=== PATIENT | female | born 1970 | race Caucasian/White ===

== ENCOUNTER 2018-04-26 08:32 | Observation (INO) ==
--- NOTE | 2018-04-26 08:44 | ED ---
HPI General Chief Complaint: Chest Pain Stated Complaint: Chest pain Time Seen by Provider: 04/26/18 08:42 Source: patient Mode of arrival: ambulatory Limitations: no limitations History of Present Illness HPI narrative: 48-year-old female patient presents to the ER today with intermittent chest discomfort lasting about 5 minutes at a time starting while she was at work. She states that the pain was a 8 out of 10 but is now a 2 out of 10. She denies any trouble breathing, vomiting, but did state that she has some nausea today. She states that her left arm feels tingly. She states that she had loss of both of her parents recently. However, denies other issues. Complete Quality Measures for STEMI Alert Patients Related Data Home Medications Medication Instructions Recorded Confirmed No Known Home Medications 04/26/18 04/26/18 Allergies Allergy/AdvReac Type Severity Reaction Status Date / Time No Known Allergies Allergy Unverified 04/26/18 08:44 Review of Systems Except as stated in HPI: all other systems reviewed are negative PMFSH History History Provided By: Patient Social History Social History Substance History: Past History Smoking Status: Former smoker How Often Do You Have a Drink Containing Alcohol: Never Recent Travel in [place] within the Last 8 Weeks: No Recent Out of Country Travel within the Last 8 Weeks: No Exam Narrative Exam Narrative: GENERAL: Well-developed middle-age female patient currently in mild distress. Awake and oriented 3. SKIN: Focused skin assessment warm/dry. HEAD: Atraumatic. Normocephalic. EYES: Pupils equal and round. No scleral icterus. No injection or drainage. ENT: No nasal bleeding or discharge. Mucous membranes pink and moist. NECK: Trachea midline. No JVD. CARDIOVASCULAR: Regular rate and rhythm. No murmur appreciated. RESPIRATORY: No accessory muscle use. Clear to auscultation. Breath sounds equal bilaterally. GASTROINTESTINAL: Abdomen soft, non-tender, nondistended. Hepatic and splenic margins not palpable. MUSCULOSKELETAL: No obvious deformities. No clubbing. No cyanosis. No edema. NEUROLOGICAL: Awake and alert. No obvious cranial nerve deficits. Motor grossly within normal limits. Normal speech. PSYCHIATRIC: Appropriate mood and affect; insight and judgment normal. Course Initial Documented Vital Signs Temperature 98.2 F 04/26/18 08:44 Pulse Rate 109 H 04/26/18 08:44 Respiratory Rate 20 04/26/18 08:44 Blood Pressure 147/70 H 04/26/18 08:44 Pulse Oximetry 97 04/26/18 08:44 Last Documented Vital Signs Temperature 98.2 F 04/26/18 08:44 Pulse Rate 107 H 04/26/18 09:30 Respiratory Rate 17 04/26/18 09:30 Blood Pressure 133/73 04/26/18 09:30 Pulse Oximetry 94 L 04/26/18 09:30 Medical Decision Making MDM Narrative Medical decision making narrative: EKG did not show significant ST changes. Her lab work was fairly unremarkable with a negative troponin. Patient states that she has been smoking more since the of her parents, and she does admit that she has been coughing a bit. Chest x-ray did not show any signs of acute pneumonia. She was given a nebulizer in the ER considering her history. At this point, patient has been given aspirin by EMS and in the ER on reevaluation at 10 AM, she states that her chest pain is gone. My plan would be to admit her for further evaluation of this atypical chest pain. She apparently has family history of heart disease as well. Differential Diagnosis Differential Diagnosis: Anxiety attack versus dysrhythmias versus ACS Lab Data Lab results reviewed: Yes I reviewed the patient's lab results. Result diagrams: 04/26/18 08:53 04/26/18 08:53 Lab Results 04/26/18 04/26/18 04/26/18 Range/Units 08:53 08:53 08:53 WBC 8.3 (4.0-11.0) th/mm3 RBC 5.32 H (4.00-5.30) mil/mm3 Hgb 15.6 H (11.6-15.3) gm/dL Hct 46.3 H (35.0-46.0) % MCV 87.0 (80.0-100.0) fL MCH 29.4 (27.0-34.0) pg MCHC 33.8 (32.0-36.0) % RDW 14.0 (11.6-17.2) % Plt Count 304 (150-450) th/mm3 MPV 9.3 (7.0-11.0) fL Neut % (Auto) 67.0 (16.0-70.0) % Lymph % (Auto) 22.7 (9.0-44.0) % [place] % (Auto) 8.6 H (0.0-8.0) % Eos % (Auto) 1.4 (0.0-4.0) % Baso % (Auto) 0.3 (0.0-2.0) % Neut # (Auto) 5.6 (1.8-7.7) th/mm3 Lymph # (Auto) 1.9 (1.0-4.8) th/mm3 [place] # (Auto) 0.7 (0.0-0.9) th/mm3 Eos # (Auto) 0.1 (0.0-0.4) th/mm3 Baso # (Auto) 0.0 (0.0-0.2) th/mm3 WBC Differential . Differential Comment Auto diff final PT 10.7 (9.8-11.6) sec INR 1.1 Ratio APTT 30.9 H (24.3-30.1) sec Sodium 139 (136-145) meq/L Potassium 3.8 (3.5-5.1) meq/L Chloride 105 (98-107) meq/L Carbon Dioxide 24.8 (21.0-32.0) meq/L Anion Gap 9 (5-15) meq/L BUN 12 (7-18) mg/dL Creatinine 0.51 (0.50-1.00) mg/dL Estimated GFR Greater than 89 (>89) mL/min Random Glucose 111 H (74-106) mg/dL Calcium 8.9 (8.5-10.1) mg/dL Troponin I 0.04 (0.02-0.05) ng/mL Imaging Data Attestation: I personally reviewed and interpreted this imaging study as follows : Radiologist's impression: Chest X-Ray 04/26/18 08:45 CONCLUSION: No acute findings. ECG Data Attestation: I personally reviewed and interpreted this ECG as follows: Interpretation: EKG shows sinus tachycardia at a rate of 104 bpm. No signs of acute ST elevations or depressions. Discharge Plan Discharge Details Anticipated Discharge Date: 04/26/18 Physicians Team ED Provider: Jovan Zazueta Rxs /Orders / Referrals /Forms Prescriptions: No Action No Known Home Medications RF: 0 Discharge Interventions Interventions: Vital Signs Last Done: 04/26/18 09:30 Status ED Status: With Doctor
[2018-04-26 09:27] LABS: Baso % (Auto) 0.3 % (0.0-2.0); Eos # (Auto) 0.1 th/mm3 (0.0-0.4); Eos % (Auto) 1.4 % (0.0-4.0); Hematocrit 46.3 % (35.0-46.0); Hemoglobin 15.6 gm/dL (11.6-15.3); Lymph # (Auto) 1.9 th/mm3 (1.0-4.8); Lymph % (Auto) 22.7 % (9.0-44.0); Mean Corpuscular HGB Conc 33.8 % (32.0-36.0); Mean Corpuscular Hemoglobin 29.4 pg (27.0-34.0); Mean Platelet Volume 9.3 fL (7.0-11.0); Mono # (Auto) 0.7 th/mm3 (0.0-0.9); Mono % (Auto) 8.6 % (0.0-8.0); Neut # (Auto) 5.6 th/mm3 (1.8-7.7); Platelet Count 304 th/mm3 (150-450); Red Blood Count 5.32 mil/mm3 (4.00-5.30); White Blood Count 8.3 th/mm3 (4.0-11.0)
--- NOTE | 2018-04-26 09:33 | XR ---
EXAM DATE: 04/26/2018 9:19 AM EDT AGE/SEX: 48 years / Female INDICATIONS: Chest pain, vertigo and diaphoretic this morning CLINICAL DATA: This is the patient's initial encounter. Patient reports that signs and symptoms have been present for 1 day and indicates a pain score of 7/10. MEDICAL/SURGICAL HISTORY: . smoker None. COMPARISON: No prior exams available for comparison. FINDINGS: A single AP view of the chest demonstrates the lungs to be symmetrically aerated without evidence of mass, infiltrate or effusion. The cardiomediastinal contours are unremarkable. Osseous structures a re intact. CONCLUSION: No acute findings. Electronically signed by: Dylan Beck MD 04/26/2018 9:32 AM EDT
[2018-04-26 09:36] LABS: Activated Partial Thrombo Time 30.9 sec (24.3-30.1); INR 1.1 Ratio; Prothrombin Time 10.7 sec (9.8-11.6)
[2018-04-26 09:54] LABS: Anion Gap 9 meq/L (5-15); Blood Urea Nitrogen 12 mg/dL (7-18); Calcium 8.9 mg/dL (8.5-10.1); Carbon Dioxide 24.8 meq/L (21.0-32.0); Chloride 105 meq/L (98-107); Glomerular Filtration Rate Greater Than 89 mL/min (>89); Glucose,Random 111 mg/dL (74-106); Potassium 3.8 meq/L (3.5-5.1); Sodium 139 meq/L (136-145)
[2018-04-26 09:58] LABS: Troponin I 0.04 ng/mL (0.02-0.05)
--- NOTE | 2018-04-26 14:26 | P.HPCA ---
History of Present Illness Primary Care Physician: No Primary Care Physician Chief Complaint: Chest pain History of Present Illness: This is a 48-year-old female the presents to ED via private vehicle with complaint of having a few episodes of chest discomfort she describes a left upper chest discomfort that began first while she was sitting at her desk at work. Was a tightness the last 1 or 2 minutes but recurred 2 more times. States she broke out into a sweat and felt little nauseous but denied shortness of breath. Cannot really recall this happening before. Cannot recall ever having a stress test or heart catheterization. States that she did develop nonproductive cough for last couple days. Denies fevers or chills. Denies recent travel. - Diagnosis (1) Chest pain (2) Tobacco abuse Review of Systems General: Patient denies fevers, chills, and recent travel. HEENT: Patient denies headache, sore throat, difficulty swallowing. Cardiovascular: Has the chest discomfort as mentioned above. Denies sensation of heart beating rapidly or irregularly. No syncope. Was little diaphoretic. Respiratory: Patient has had a couple days of nonproductive coughing. Denies shortness of breath or inspirational chest discomfort. Denies wheezing or hemoptysis. GI: [place] nauseous. Patient denies vomiting, diarrhea, abdominal pain, bloody stools. Musculoskeletal: Patient denies joint pain or edema. Denies calf pain or edema. Neurovascular: Patient denies numbness, tingling, weakness in extremities. Denies headache. Endocrine: Denies polyuria and polydipsia. Hematologic: Denies easy bruising. Skin: Denies rash or itching. PMFSH - History History Provided By: Patient - Tobacco History Tobacco Use In Past 30 Days: Yes Smoking Status: Former smoker - Alcohol History How Often Do You Have a Drink Containing Alcohol: Never - Substance Use History Substance History: Past History - Substance Use Type Marijuana Status: Sustained Remission - Travel History Recent Travel in the [place] Within the Last 8 Weeks: No Recent Travel Out of the Country Within the Last 8 Weeks: No - Immunization History Tetanus Immunization: >5 Years Medications and Allergies Active Medications: Active Medications Albuterol (Duoneb Neb (Prn)) 1 ampul NEB Q4HR NEB PRN PRN Reason: SHORTNESS OF BREATH/WHEEZING Aspirin (Aspirin) 325 mg PO DAILY LANCE Clonidine HCl (Catapres) 0.1 mg PO Q6H PRN PRN Reason: SBP >165 OR DBP > 110 Sodium Chloride (Ns Flush) 2 ml IV.FLUSH UNSCH PRN PRN Reason: FLUSH AFTER USING IV ACCESS Sodium Chloride (Ns Flush) 2 ml IV.FLUSH BID LANCE Sodium Chloride (Ns Flush) 2 ml IV.FLUSH PRN PRN PRN Reason: FLUSH AFTER USING IV ACCESS Allergies Allergy/AdvReac Type Severity Reaction Status Date / Time No Known Allergies Allergy Unverified 04/26/18 08:44 Home Medications Medication Instructions Recorded Confirmed Type No Known Home Medications 04/26/18 04/26/18 History Exam Vital signs: Vital Signs 04/26/18 08:44 04/26/18 09:30 04/26/18 10:00 Temperature 98.2 F Pulse Rate 109 H 107 H 112 H Respiratory Rate 20 17 22 Blood Pressure 147/70 H 133/73 121/69 Pulse Oximetry 97 94 L 94 L 04/26/18 10:32 04/26/18 11:00 04/26/18 12:00 Temperature Pulse Rate 75 110 H 114 H Respiratory Rate 20 21 18 Blood Pressure 129/60 123/77 Pulse Oximetry 94 L 94 L 04/26/18 13:00 04/26/18 13:41 Temperature 98.6 F Pulse Rate 106 H 105 H Respiratory Rate 20 16 Blood Pressure 123/67 120/64 Pulse Oximetry 94 L 96 Intake & Output 04/25/18 04/26/18 04/26/18 18:59 06:59 18:59 Weight 113.398 kg Narrative: GENERAL: This is a well-nourished, well-developed patient, in no apparent distress. Patient speaks in clear complete sentences. Patient is pleasant. HEENT: Head is atraumatic and normocephalic. Neck is supple without lymphadenopathy and trachea is midline. No JVD or carotid bruits. CARDIOVASCULAR: Regular rate and rhythm without murmurs, gallops, or rubs. RESPIRATORY: Clear to auscultation. Breath sounds equal bilaterally. No wheezes , rales, or rhonchi. Chest wall is nontender. No use of accessory muscles. GASTROINTESTINAL: Abdomen is nontender, nondistended. Abdomen soft. No obvious pulsatile mass or bruit. No CVA tenderness. Strong femoral pulses bilaterally. Normal bowel sounds in all quadrants. MUSCULOSKELETAL: Patient is moving upper and lower extremities freely. No calf tenderness or edema, no Homans sign. Strong pulses in upper and lower extremities. NEUROLOGICAL: Patient is alert and oriented. Cranial nerves 2-12 are grossly intact. No focal deficits and speech is clear. SKIN: No rash and turgor is normal. Results 04/26/18 08:53 04/26/18 08:53 Cardiac Enzymes 04/26/18 Range/Units 08:53 Troponin I 0.04 (0.02-0.05) ng/mL Coagulation 04/26/18 Range/Units 08:53 PT 10.7 (9.8-11.6) sec APTT 30.9 H (24.3-30.1) sec CBC 04/26/18 Range/Units 08:53 WBC 8.3 (4.0-11.0) th/mm3 RBC 5.32 H (4.00-5.30) mil/mm3 Hgb 15.6 H (11.6-15.3) gm/dL Hct 46.3 H (35.0-46.0) % Plt Count 304 (150-450) th/mm3 Neut # (Auto) 5.6 (1.8-7.7) th/mm3 Lymph # (Auto) 1.9 (1.0-4.8) th/mm3 [place] # (Auto) 0.7 (0.0-0.9) th/mm3 Eos # (Auto) 0.1 (0.0-0.4) th/mm3 Baso # (Auto) 0.0 (0.0-0.2) th/mm3 Comprehensive Metabolic Panel 04/26/18 Range/Units 08:53 Sodium 139 (136-145) meq/L Potassium 3.8 (3.5-5.1) meq/L Chloride 105 (98-107) meq/L Carbon Dioxide 24.8 (21.0-32.0) meq/L BUN 12 (7-18) mg/dL Creatinine 0.51 (0.50-1.00) mg/dL Calcium 8.9 (8.5-10.1) mg/dL Intake and Output 04/25/18 04/26/18 04/26/18 22:59 06:59 14:59 Other: Weight 113.398 kg Patient Weight 04/27/18 06:59 Weight 113.398 kg EKG interpretations - EKG EKG shows: tachycardia (Initial EKG is sinus tachycardia rate [address] segment depressions or elevations.) Caprini VTE Risk Assessment Caprini VTE Risk Assessment: No/Low Risk (score <= 1) Caprini Risk Assessment Model: Point Value = 1 Point Value = 2 Point Value = 3 Point Value = 5 Age 41-60 Minor surgery BMI > 25 kg/m2 Swollen legs Varicose veins or History of unexplained or recurrent spontaneous Oral contraceptives or hormone replacement Sepsis (< 1 month) Serious lung disease, including pneumonia (< 1 month) Abnormal pulmonary function Acute myocardial infarction Congestive heart failure (< 1 month) History of inflammatory bowel disease Medical patient at bed rest Age 61-74 Arthroscopic surgery Major open surgery (> 45 min) Laparoscopic surgery (> 45 min) Malignancy Confined to bed (> 72 hours) Immobilizing plaster cast Central venous access Age >= 75 History of VTE Family history of VTE Factor V Leiden Prothrombin [id number] Lupus anticoagulant Anticardiolipin antibodies Elevated serum homocysteine Heparin-induced thrombocytopenia Other congenital or acquired thrombophilia Stroke (< 1 month) Elective arthroplasty Hip, pelvis, or leg fracture Acute spinal cord injury (< 1 month) Prophylaxis Regimen: Total Risk Factor Score Risk Level Prophylaxis Regimen 0-1 Low Early ambulation 2 Moderate Order ONE of the following: *Sequential Compression Device (SCD) *Heparin 5000 units SQ BID 3-4 Higher Order ONE of the following medications: *Heparin 5000 units SQ TID *Enoxaparin/Lovenox 40 mg SQ daily (WT < 150 kg, CrCl > 30 mL/min) *Enoxaparin/Lovenox 30 mg SQ daily (WT < 150 kg, CrCl > 10-29 mL/min) *Enoxaparin/Lovenox 30 mg SQ BID (WT < 150 kg, CrCl > 30 mL/min) AND/OR *Sequential Compression Device (SCD) 5 or more Highest Order ONE of the following medications: *Heparin 5000 units SQ TID (Preferred with Epidurals) *Enoxaparin/Lovenox 40 mg SQ daily (WT < 150 kg, CrCl > 30 mL/min) *Enoxaparin/Lovenox 30 mg SQ daily (WT < 150 kg, CrCl > 10-29 mL/min) *Enoxaparin/Lovenox 30 mg SQ BID (WT < 150 kg, CrCl > 30 mL/min) AND *Sequential Compression Device (SCD) Assessment and Plan - Assessment (1) Chest pain Code(s): R07.9 - Chest pain, unspecified Status: Acute (2) Tobacco abuse Code(s): Z72.0 - Tobacco use Status: Acute - Plan * Chest pain: Patient will have serial cardiac enzymes and EKGs for ruling out purposes. She will be seen by Dr. Downs of cardiology in the chest pain center. Patient likely have stress test if she rules out. Patient will be discharged home her stress test is nonischemic with instructions to follow-up with PCP, quit smoking, and return to ED for interval issues. * Tobacco abuse: Patient counseled on the importance of smoking cessation.
[2018-04-26 15:03] LABS: Troponin I 0.04 ng/mL (0.02-0.05)
[2018-04-26] MEDS ORDERED: Sod Chloride 0.9% Inj 1,000 ML IV.SIG ONE (16:15)
--- NOTE | 2018-04-26 16:51 | TR ---
Date Performed: 04/26/2018 Time Performed: 15:43:43 DOCTOR: Mimi Downs DRUG LIST: CLINICAL HISTORY: REASON FOR TEST: ATYPICAL CHEST PAIN REASON FOR ENDING: OBSERVATION: CONCLUSION: MAXIMUS PROTOCOL. NO CP. TEST STOPPED SECONDARY TO SOB AND LEG FATIGUE.Maximum NX=349 % Max HR Fbomdcjg=510.0% Maximum PS=102/74 Total Exercise Time=5:01 COMMENTS: NO ISCHEMIA
--- NOTE | 2018-04-26 23:04 | ECG ---
Date Performed: 04/26/2018 Time Performed: 08:44:40 PTAGE: 48 years EKG: SINUS TACHYCARDIA WITH OCCASIONAL SUPRAVENTRICULAR PREMATURE COMPLEXES POSSIBLE LEFT ATRIAL ENLARGEMENT ABNORMAL RHYTHM ECG INTERPRETATION BASED ON A DEFAULT AGE OF 42 YEARS NO PREVIOUS TRACING DOCTOR: Ben Del Cid Interpretating Date/Time 04/26/2018 23:03:55
[2018-04-26 23:36] VITALS: BP 128/75; PULSE 110; RESP 18; TEMP 98.8; O2SAT 93
[2018-04-27] MEDS ORDERED: Aspirin 325 MG Tablet PO SCH (09:00)
--- NOTE | 2018-04-27 22:39 | ECG ---
Date Performed: 04/26/2018 Time Performed: 14:36:55 PTAGE: 48 years EKG: SINUS TACHYCARDIA ABNORMAL RHYTHM ECG INTERPRETATION BASED ON A DEFAULT AGE OF 42 YEARS PREVIOUS TRACING : 04/26/2018 08.44 Since the previous tracing, no significant change not ed DOCTOR: Virgil Gloria Interpretating Date/Time 04/27/2018 22:37:35
== END 2018-04-26 18:13 | disposition home or self-care (01) ==
LOC: NEPC 08:32 → NEPGCP 08:32 → NEDA 08:32 → NEPGCP 13:20
PROVIDERS: ADMIT Emergency Medicine; ATTEND Emergency Medicine
DX: F17.200 Nicotine dependence, unspecified, uncomplicated; R07.89 Other chest pain; R11.0 Nausea; R05 Cough; R61 Generalized hyperhidrosis